=== PATIENT | female | born 1985 | race Two or more races ===

== ENCOUNTER 2021-06-29 17:56 | Emergency (ER) | payer OTHER ==
[~2021-06-29] VITALS: Ht 157.5 cm; Wt 74.8 kg
[2021-06-29] MEDS ORDERED: EC-NAPROSYN375 MG PO (20:53)
[2021-06-29] MEDS ORDERED: SKELAXIN800 MG PO (20:53)
== END 2021-06-29 21:11 | disposition home or self-care (01) ==
LOC: ER 17:56
DX: S00.81XA Abrasion of other part of head, initial encounter (principal); S80.212A Abrasion, left knee, initial encounter; S80.211A Abrasion, right knee, initial encounter; S40.211A Abrasion of right shoulder, initial encounter; W05.2XXA Fall from non-moving motorized mobility scooter, initial encounter; Y93.89 Activity, other specified; Y92.488 Other paved roadways as the place of occurrence of the external cause; Y99.8 Other external cause status